=== PATIENT | female | born 1970 | race Caucasian/White ===

== ENCOUNTER 2016-04-19 15:11 | Emergency (ER) | payer OTHER ==
--- NOTE | 2016-04-19 16:18 | DIRPT ---
CLINICAL DATA: Fall on ice today with right shoulder pain. Initial encounter. EXAM: RIGHT SHOULDER - 2+ VIEW COMPARISON: None. FINDINGS: There is no evidence of fracture or dislocation. There is no evidence of arthropathy or other focal bone abnormality. Soft tissues are unremarkable. IMPRESSION: Negative. Electronically Signed By: Naga Schuster M.D. On: 04/19/2016 16:16
[2016-04-19 17:10] VITALS: BP 156/67; PULSE 76; TEMP 98.5; BMI 34.0
--- NOTE | 2016-04-19 17:12 | EDPRACDOC ---
- General Information Chief Complaint: Shoulder Injury Stated Complaint: SHOULDER PAIN; FALL Time Seen by Provider: 04/19/16 17:08 Information Source: Patient Mode of Arrival: Car Home Medications: Home Medications Ibuprofen Tablet [Motrin] 800 mg PO TID PRN #30 tab 04/19/16 - History of Present Illness Onset: 1300 today HPI: PT STATES SHE SLIPPED ON ICE FELL FORWARD ONTO OUTSTRETCHED HANDS, COMPLAINS OF PAIN IN RIGHT SHOULDER, STATES PAIN IS ACHING, WORSE WITH MOVEMENT, STATES SHE INITIALLY DID NOT FEEL ANY PAIN AFTER THE FALL BUT NOTICED PAIN LATER WHILE LOADING LINENS. Description: Reports: At Rest Location: Reports: Right, Lateral, Anterior Circumstances: Reports: Work related, Fall Relevant History: Reports: None Dominant Hand: Left Pain Severity: Moderate Able to Move Shoulder?: Yes Associated Signs & Symptoms: Denies: Abrasion, Swelling, Numbness, Chest pain, Neck pain, Arm pain, Elbow pain ED Past Medical History - History Reviewed Yes Nurses notes reviewed and agree except as marked No Past Medical History: Yes Patient has no past medical history - Social Medical History Smoking Status: Never smoker EDM Review of Systems - Review of Systems Neurological: negative: Dizziness, Numbness, Weakness Musculoskeletal: Shoulder Integumentary: No Symptoms Reported - Physical Exam Constitutional: Alert (Awake), No apparent distress Oriented to: Time, Person, Place Last recorded Vital Signs: Last Vital Signs Temp 98.5 F 04/19/16 17:09 Pulse 76 04/19/16 17:09 Resp 20 04/19/16 17:09 BP 156/67 04/19/16 17:09 Pulse Ox 98 04/19/16 17:09 Oxygen Pulse Oxygen Saturation 98 O2 Device Room Air Oxygen Flow Rate Fraction of Inspired Oxygen ( FIO2) - HEENT Head: Normal ( normocephalic) - Integumentary Skin: Normal, Warm, Dry Lymphatics: Normal (no adenopathy) - Neurologic Memory Impaired: Normal Motor Function: Normal (Normal tone, Pulses 2+ No cyanosis or edema, FROM) Cranial Nerve: Normal (CN II-X11 intact sensation, strength 5/5) Cerebellar: Normal Mood Description: Normal Perception: Normal ED Shoulder Problem Exam - Musculoskeletal Clavicle: Normal. negative: Swelling, Ecchymosis, Deformity, Tender, Crepitance Shoulder: Tender. negative: Swelling, Ecchymosis, Deformity, Dislocation, Limited ROM Drop arm test: Negative Impingement test: Negative Arm: Normal. negative: Swelling, Deformity Distal Function/Circulation: Normal, Capillary Refill. negative: Motor Deficit , Pulse Deficit, Sensory Deficit - Differential Diagnosis AC separation, Contusion, Dislocation - Diagnostic Imaging RIGHT SHOULDER Image interpreted by: Radiologist RIGHT SHOULDER - 2+ VIEW COMPARISON: None. FINDINGS: There is no evidence of fracture or dislocation. There is no evidence of arthropathy or other focal bone abnormality. Soft tissues are unremarkable. IMPRESSION: Negative. Decision Time to Discharge: 17:12 - Departure Disposition: Home Condition: Stable Final Diagnosis: Right shoulder pain Qualifiers: Chronicity: acute Qualified Code(s): M25.511 - Pain in right shoulder Instructions: RICE: Routine Care for Injuries Education/Counseling Given To: Patient Education/Counseling Given Regarding: Diagnosis, Treatment, Prognosis, Follow Up Referrals: Prabha Gandara MD [Primary Care Provider] - One Week Prescriptions: Ibuprofen Tablet [Motrin] 800 mg PO TID PRN #30 tab PRN Reason: Pain Additional Instructions: APPLY WARM COMPRESSES TO YOUR SHOULDER 20 MINS AT A TIME 4 - 5 TIMES DAILY NEEDED FOR PAIN.
== END 2016-04-19 17:55 | disposition home or self-care (01) ==
LOC: EDMC 15:11
DX: M25.511 Pain in right shoulder (principal); W00.0XXA Fall on same level due to ice and snow, initial encounter
CPT/HCPCS: 80307; 99282